=== PATIENT | male | born 1980 | race Caucasian/White ===

== ENCOUNTER 2023-08-21 13:26 | Emergency (ER) | payer BC, SELFPAY ==
[2023-08-21 13:31] VITALS: BP 182/116; PULSE 113; RESP 20; TEMP 36.1; O2SAT 98; BMI 27.0
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
[2023-08-21 15:42] VITALS: BP 168/108; PULSE 92; RESP 16; O2SAT 98
--- NOTE | 2023-08-21 15:50 | ED.NURSE ---
Rad disc given to Pt, along with imaging printed pictures from MD. Wound care provided. Per MD, wound to be left open to air. Pt declines D/C instructions, asked to be called with instructions.
[2023-08-21 15:57] VITALS: BP 168/108; PULSE 92; RESP 16; TEMP 36.1
--- NOTE | 2023-08-21 16:06 | ED.NURSE ---
Left voicemail for Pt in attempt to provide D/C instructions per Pt request.
== END 2023-08-21 16:05 | disposition home or self-care (01) ==
PROVIDERS: Emergency Provider Family Medicine; PCP Family Medicine
DX: S00.83XA Contusion of other part of head, initial encounter (principal); Y04.2XXA Assault by strike against or bumped into by another person, initial encounter
CPT/HCPCS: 70450; 72125; 99283; 99284

== ENCOUNTER 2023-08-27 05:15 | Emergency (ER) | payer BC, SELFPAY ==
[2023-08-27] VITALS (8 sets, daily range): BP systolic 143–190; BP diastolic 97–129; PULSE 88–103; RESP 15–18; TEMP 36.3–37.1; O2SAT 96–100; BMI 27.0
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
[2023-08-27 11:00] LABS: Appearance Urine Clear (Clear); Bilirubin Urine Negative (Negative); Blood Urine 1+ (Negative); Color Urine Yellow (Yellow); Glucose Urine Negative (Negative); Ketones Urine Negative (Negative); Leukocyte Esterase Urine Negative (Negative); Nitrite Urine Negative (Negative); Protein Urine Negative (Negative); Specific Gravity Urine 1.015 (1.000-1.030); Urobilinogen Urine 0.2 (0.2-1.0)
[2023-08-27 11:18] LABS: Amorphous Sediment Urine Few; Bacteria Urine Few; WBC Urine 0-2 (0-5)
[2023-08-27 13:00] LABS: Creatinine, Point-of-Care* 0.8 mg/dl (0.6-1.3)
== END 2023-08-27 14:19 | disposition home or self-care (01) ==
PROVIDERS: Emergency Provider Family Medicine
DX: N20.1 Calculus of ureter (principal); S06.0X0A Concussion without loss of consciousness, initial encounter
CPT/HCPCS: 70450; 70486; 72131; 73030; 81001; 82565; 87086; 99284; 99285

== ENCOUNTER 2024-01-07 07:09 | Emergency (ER) | payer BC, SELFPAY ==
[2024-01-07 07:16] VITALS: BP 190/123; PULSE 90; RESP 16; TEMP 36.8; O2SAT 99; BMI 27.0
--- NOTE | 2024-01-07 07:19 | ED_ITS ---
HPI - Wound/Laceration General Date Seen: 01/07/24 Chief Complaint: Laceration/Wound Stated Complaint: right hand pinky laceration Time Seen by Provider: 01/07/24 07:18 Source: patient Mode of arrival: ambulatory Limitations: no limitations History of Present Illness HPI narrative: Patient is a 43-year-old male with a history of for decreased extremity since a soon ever since a brain injury several years ago. States he was using a kitchen knife today when it stepped in cut his right pinky. Laceration is on the his flexor aspect of the finger. States that law pain and has difficulty moving it right now. Denies any other injuries. Is not sure when his last tetanus shot was but he thinks it was within the last 10 years. No other injuries noted. Related Data Home Medications Medication Instructions Recorded Confirmed baclofen 10 mg tablet 20 mg PO QID 08/21/23 01/07/24 dextroamphetamine-amphetamine 30 1 tab PO BID 08/21/23 01/07/24 mg tablet duloxetine 60 mg capsule,delayed 120 mg PO DAILY 08/21/23 01/07/24 release trazodone 100 mg tablet 100 mg PO 08/21/23 Previous Rx's Medication Instructions Recorded hydrocodone 5 mg-acetaminophen 325 1 - 2 tab PO DAILY PRN pain #15 08/27/23 mg tablet tabs hydrocodone 5 mg-acetaminophen 325 1 - 2 tab PO Q4-6H PRN pain #15 08/27/23 mg tablet tabs ondansetron 4 mg disintegrating 4 mg PO Q4-6H #10 tabs 08/27/23 tablet ondansetron HCl 4 mg tablet 4 mg PO Q4-6H PRN nausea and 08/27/23 vomiting #10 tabs tamsulosin 0.4 mg capsule 0.4 mg PO DAILY #15 caps 08/27/23 tamsulosin 0.4 mg capsule 0.4 mg PO DAILY #15 caps 08/27/23 Allergies Allergy/AdvReac Type Severity Reaction Status Date / Time No Known Drug Allergies Allergy Verified 01/07/24 07:30 Review of Systems Narrative: Pertinent systems reviewed and are negative unless stated in HPI PFSH PFSH Social History Smoking Status: Current some day smoker Do you use any of these nicotine containing products: Vaping Products Second hand tobacco smoke exposure: No How often do you have a drink containing alcohol: monthly or less How many standard drinks containing alcohol do you have on a typical day: 5 or 6 How often do you have six or more drinks on one occasion: Less than monthly AUDIT-C Alcohol total score: 4 Non-prescribed substance use: marijuana (any form) Non-prescribed substance use details: vape pen service: No Exam Narrative: Exam Narrative: Const: Well-nourished, Well-developed, in now distress Eyes: PERRL, no conjunctival injection, and symmetrical lids HENT: Atraumatic external nose and ears. Moist mucous membranes. MSK:Extremities w/o deformity, Normal Active ROM Skin: Warm, Dry. 1 cm laceration to left pinky just proximal to the PIP on the flexor side Neuro: Normal Muscle tone, No focal neurological deficits. Psych: Awake, Alert, & Oriented x3. Appropriate mood and affect. Const: Vital Signs, click to edit/add: Vital Signs - 24 hr 01/07/24 07:16 Temperature 98.2 F Pulse Rate [Pulse Oximeter] 90 Respiratory Rate 16 Blood Pressure [Le ft Upper Arm] 190/123 H Pulse Oximetry 99 Oxygen Delivery Me thod Room Air Course Vital Signs Vital signs: Initial Vital Signs Temperature 98.2 F 01/07/24 07:16 Temperature Source Temporal Artery Scan 01/07/24 07:16 Pulse Rate 90 01/07/24 07:16 Respiratory Rate 16 01/07/24 07:16 Blood Pressure 190/123 H 01/07/24 07:16 Blood Pressure Mean 145 H 01/07/24 07:16 Blood Pressure Position Sitting 01/07/24 07:16 Pulse Oximetry 99 01/07/24 07:16 Oxygen Delivery Method Room Air 01/07/24 07:16 Vital Signs Temperature 98.2 F 01/07/24 07:16 Pulse Rate 90 01/07/24 07:16 Respiratory Rate 16 01/07/24 07:16 Blood Pressure 190/123 H 01/07/24 07:16 Pulse Oximetry 99 01/07/24 07:16 Oxygen Delivery Method Room Air 01/07/24 07:16 Temperature 98.2 F 01/07/24 07:16 Pulse Rate 90 01/07/24 07:16 Respiratory Rate 16 01/07/24 07:16 Blood Pressure 190/123 H 01/07/24 07:16 Pulse Oximetry 99 01/07/24 07:16 Oxygen Delivery Method Room Air 01/07/24 07:16 MDM - Wound/Laceration MDM Narrative Medical decision making narrative: Patient is a 43-year-old male presenting for laceration to his right pinky. This was just proximal to the D IP and occurred shortly prior to arrival. Bleeding is under control. He is unable to bend at the D IP at this time. There is a structure that appears to be tenderness in nature but it it is after the side and is not where I would expect to see the tendon. I do not know for sure if this is the tendon or if I am confusing it with a another structure. Due to that I did speak to [facility] Hand specialist. Was recommended splint the patient and they will follow-up with him to set up a follow-up. I sutured the area and he is doing well. She will be discharged home. I do not believe antibiotics are necessary at this time Discharge Plan Discharge Clinical Impression: Laceration Patient Disposition: Home, Self-Care Condition: Stable Instructions: Finger Laceration (ED) Additional Instructions: I spoke to [facility] and they state they will call you to set up follow-up. If you do not hear from them in the next couple days call them your self. Wear the splint as much as possible. Follow-up with your primary care provider in the next 7 days to have the 5 sutures removed. For next 6 months, once sutures are removed, whenever you go outside put a dab of sunscreen over the laceration site to improve scar appearance. Topical antibiotics are not necessary at this time. Patient can shower but do not submerge the laceration until sutures are removed Prescriptions: No Action dextroamphetamine-amphetamine 30 mg tablet 1 tab PO BID trazodone 100 mg tablet 100 mg PO baclofen 10 mg tablet 20 mg PO QID duloxetine 60 mg capsule,delayed release(DR/EC) 120 mg PO DAILY tamsulosin 0.4 mg capsule 0.4 mg PO DAILY Qty: 15 0RF hydrocodone-acetaminophen 5-325 mg tablet 1 - 2 tab PO Q4-6H PRN (Reason: pain) Qty: 15 0RF ondansetron HCl 4 mg tablet 4 mg PO Q4-6H PRN (Reason: nausea and vomiting) Qty: 10 0RF hydrocodone-acetaminophen 5-325 mg tablet 1 - 2 tab PO DAILY PRN (Reason: pain) Qty: 15 0RF ondansetron 4 mg tablet,disintegrating 4 mg PO Q4-6H Qty: 10 0RF tamsulosin 0.4 mg capsule 0.4 mg PO DAILY Qty: 15 0RF Follow Up/Referrals: Provider,Not a Local [Primary Care Provider] - Stand Alone [facility] Instructions Procedures Laceration Right pinky: Site: hand (Flexor side of pinky) Side (If applicable): right Size (cm): 1 Description: linear and clean Local Anesthetic: lidocaine 1% Amount of anesthesia used (mL): 5 Pre-repair: wound explored (Unable to definitively say if tendon is intact) and irrigated extensively Skin layer closed with: nylon Size (cm): 5-0 Number of sutures: 5 Technique: simple, interrupted
== END 2024-01-07 08:28 | disposition home or self-care (01) ==
PROVIDERS: Emergency Provider Student in an Organized Health Care Education/Training Program; PCP Family Medicine
DX: S61.216A Laceration without foreign body of right little finger without damage to nail, initial encounter (principal)
CPT/HCPCS: 12001; 99282; 99283